=== PATIENT | male | born 1995 | race Caucasian/White ===

== ENCOUNTER 2017-10-02 10:51 | Emergency (ER) | payer OTHER ==
[~2017-10-02] VITALS: Ht 170.2 cm; Wt 61.2 kg
[~2017-10-02 10:51] MED LIST: AMOXICILLIN500 M3 PO; CYCLOBENZAPRINE10 M1 PO; DOLOBID PO; IBUPROFEN800 M1 PO; NORCO 5-325 TA1 EACH PO; PERCOCET 5-3251 EACH PO; ROBAXIN-750750 M1 PO
--- NOTE | 2017-10-02 12:07 | ED GI/GU/ABDOMINAL COMPLAINT ---
History of Present Illness General Chief Complaint: General Adult Stated Complaint: STD TESTING Source: patient Exam Limitations: no limitations Vital Signs & Intake/Output Vital Signs & Intake/Output Vital Signs Date Time Temp Pulse Resp B/P B/P Pulse O2 O2 Flow FiO2 Mean Ox Delivery Rate 10/02 1224 98.1 77 16 124/78 99 Room Air 10/02 1203 Room Air 10/02 1057 98.0 82 20 128/84 99 Room Air Allergies Coded Allergies: No Known Allergies (01/27/16) Reconcile Medications No Known Home Medications Triage Note: PT STATES HE HAD UNPROTECTED SEX WITH SOMEONE WHO HAS CHLAMYDIA Triage Nurses Notes Reviewed? yes Onset: Abrupt Duration: day(s):, constant, continues in ED Timing: recent history No Modifying Factors: none HPI: 22-year-old male comes into the emergency room for positive exposure to chlamydia. Patient reports intercourse with a woman last week and she tested positive for chlamydia. He denies any symptoms. Denies any discharge. He comes in for further evaluation. Past History Travel History Traveled to [place] past 21 day No Medical History Any Pertinent Medical History? see below for history Neurological: NONE EENT: NONE Cardiovascular: NONE Respiratory: asthma, bronchitis Gastrointestinal: NONE Hepatic: NONE Renal: NONE Musculoskeletal: NONE Psychiatric: NONE Endocrine: NONE Blood Disorders: NONE Cancer(s): NONE TRAVEL REGISTERED NURSE PACU/Reproductive: NONE Surgical History Surgical History: N Psychosocial History What is your primary language Ch[place] Tobacco Use: Current Daily Use Daily Tobacco Use Amount/Type: => 5 Cigarettes daily ETOH Use: occasional use Illicit Drug Use: marijuana Family History Hx Contributory? No Review of Systems Review of Systems Constitutional: Reports: no symptoms. EENTM: Reports: no symptoms. Respiratory: Reports: no symptoms. Cardiovascular: Reports: no symptoms. GI: Reports: no symptoms. Genitourinary: Reports: see HPI. Musculoskeletal: Reports: no symptoms. Skin: Reports: no symptoms. Neurological/Psychological: Reports: no symptoms. Hematologic/Endocrine: Reports: no symptoms. Immunologic/Allergic: Reports: no symptoms. All Other Systems: Reviewed and Negative Physical Exam Physical Exam General Appearance: well developed/nourished, alert, awake Head: atraumatic, normal appearance Eyes: Bilateral: normal appearance. Ears, Nose, Throat, Mouth: hearing grossly normal, moist mucous membrane Neck: normal inspection Respiratory: no respiratory distress Gastrointestinal: soft Male Genitals: normal genitalia, urethral discharge, . No scrotoal tenderness Back: normal inspection Extremities: normal range of motion Neurologic/Psych: awake, alert, oriented x 3, normal gait Skin: intact, normal color Core Measures ACS in differential dx? No Sepsis Present: No Sepsis Focused Exam Completed? No Progress Differential Diagnosis: STD, testicular torsion, ureterolithiasis, urinary retention, urethritis, UTI/pyelo Plan of Care: Orders Procedure Date/time Status CHLAMYDIA-GC DNA PROBE 10/02 1137 Active URINALYSIS 10/02 1137 Complete Laboratory Tests 10/02/17 1148: Urine Color YEL, Urine Clarity CLEAR, Urine pH 7.0, Ur Specific [place] 1.020, Urine Protein NEG, Urine Ketones NEG, Urine Nitrite NEG, Urine Bilirubin NEG, Urine Urobilinogen 0.2, Ur Leukocyte Esterase NEG, Ur Microscopic EXAM NOT REQUIRED, Urine Hemoglobin NEG, Urine Glucose NEG Microbiology 10/02 1147 URINE ROUT: GC DNA Probe - RECD 10/02 1147 URINE ROUT: Chlamydia DNA Probe (PAUL) - RECD Initial ED EKG: none Departure Departure Disposition: HOME OR SELF CARE Condition: Stable Clinical Impression Primary Impression: Exposure to chlamydia Referrals: Patient Has No Primary Care Dr (PCP/Family) Additional Instructions: Return if any concerns worsening symptoms. if you want a full STD panel follow -up with your PCP. Return if any other concerns worsening symptoms. Please go over all results of today's visit with your primary care doctor. Contact your primary care doctor to let them know you were here in the emergency room. There may be nonspecific findings which may not be related to your visit today here in the emergency room but may require further evaluation and chronic monitoring by your primary care doctor. If you had a laceration today the chance of foreign body always remains. You should follow-up with your primary care doctor for recheck in 3-5 days for a wound check. If you had an x-ray done there is a chance that a fracture could have been missed on initial read and you should follow-up with your primary care doctor for repeat x-rays if symptoms persist. If your blood pressure was elevated here in the emergency room please have rechecked by [facility] primary care doctor within the next 48. If you were prescribed a narcotic here in the emergency room or any type of controlled substances you're not allowed to drive while taking this medication or operate any type of heavy machinery. Narcotics can make you feel lightheaded dizziness nausea and can cause constipation. You may need to roll picker a stool softener. Thank you for choosing [facility] emergency room. Please return to the emergency room immediately if you have any other concerns worsening of symptoms. Departure Forms: Customer Survey General Discharge Information Prescriptions: Current Visit Scripts No Known Home Medications Comments 10/02/2017 1:34:00 PM Clinically looks well. Asymptomatic. Prophylactically treated. Return if any other concerns.
[2017-10-02 12:24] VITALS: BP 124/78
== END 2017-10-02 12:25 ==
LOC: ERH 10:51
DX: Z20.2 Contact with and (suspected) exposure to infections with a predominantly sexual mode of transmission (principal)
CPT/HCPCS: 81003; 87491; 87591; J0696